=== PATIENT | female | born 1960 ===

== ENCOUNTER 2021-07-01 11:15 | Inpatient (IN) | payer OTHER ==
[~2021-07-01] VITALS: Ht 157.5 cm; Wt 78.0 kg
[2021-07-01] MEDS ORDERED: COZAAR50 MG (13:20)
[2021-07-01] MEDS ORDERED: LOSARTAN-HCTZ1 EAC1 PO (13:21)
[2021-07-01] MEDS ORDERED: CRESTOR40 MG PO (13:21)
[2021-07-01] MEDS ORDERED: TOPROL XL25 M1 PO (13:21)
[2021-07-01] MEDS ORDERED: SINGULAIR10 MG PO (13:22)
[2021-07-01] MEDS ORDERED: ALLEG PO (13:22)
[2021-07-01] MEDS ORDERED: ZETIA10 MG PO (13:22)
[2021-07-02] MEDS ORDERED: ST. JOSEPH ASPI81 M2 (11:53)
[2021-07-02] MEDS ORDERED: ALLEGRA ALLERGY60 MG (11:55)
== END 2021-07-04 16:38 | disposition home or self-care (01) | DRG 743 ==
LOC: O/R 07-02 08:12 → SURH 07-02 10:00 → OB/GYN 07-02 14:56
PROVIDERS: ADMIT Specialist; ATTEND Specialist
PROC: 0UT74ZZ Resection of Bilateral Fallopian Tubes, Percutaneous Endoscopic Approach (ICD-10-PCS; 2021-07-02)
PROC: 0UT24ZZ Resection of Bilateral Ovaries, Percutaneous Endoscopic Approach (ICD-10-PCS; 2021-07-02)
PROC: 0UT94ZZ Resection of Uterus, Percutaneous Endoscopic Approach (ICD-10-PCS; principal; 2021-07-02 10:00)
DX: N80.0 Endometriosis of uterus (principal); Z20.822 Contact with and (suspected) exposure to COVID-19; N83.291 Other ovarian cyst, right side; N83.292 Other ovarian cyst, left side; N72 Inflammatory disease of cervix uteri